=== PATIENT | male | born 1940 | race Caucasian/White ===

== ENCOUNTER 2019-01-18 06:48 | Outpatient (CLI) | payer MEDICARE, BC ==
[2019-01-18 13:45] LABS: #Basophils 0.1 thou/uL (0.0-0.2); #Eosinphils 0.3 thou/uL (0.0-0.7); #Lymphocytes 1.4 thou/uL (1.20-3.40); #Monocytes 0.4 thou/uL (0.11-0.59); #Neutrophils 3.4 thou/uL (1.40-6.50); %Basophils 1.1 % (0.0-1.0); %Eosinophils 5.3 % (0.0-10.0); %Lymphocytes 24.9 % (21.0-51.0); %Monocytes 6.8 % (0.0-10.0); %Neutrophils 61.9 % (42.0-75.0); Hemoglobin 14.5 g/dL (14.0-18.0); Mean Corpuscular HGB CONC 33.7 g/dL (32.0-36.0); Mean Corpuscular Hemoglobin 33.2 pg (27.0-31.0); Mean Corpuscular Volume 98.6 fL (78.0-98.0); Mean Platelet Volume 8.6 fL (7.4-10.4); Platelet Count 142 thou/uL (130-400); RBC Distribution Width 11.8 % (11.5-14.5); Red Blood Cell (RBC) Count 4.37 mill/uL (4.70-6.10); White Blood Cell (WBC) Count 5.5 thou/uL (4.8-10.8)
[2019-01-18 14:12] LABS: Anion Gap 10 mmol/L (10-20); BUN (Urea Nitrogen) 23 mg/dL (8.4-25.7); Calc. Creatinine Clearance 0 mL/min (70-130); Carbon Dioxide 28 mmol/L (23-31); Chloride 108 mmol/L (98-107); Estimated GFR-MDRD 50; Glucose 103 mg/dL (83-110); Potassium 4.5 mmol/L (3.5-5.1); Sodium 141 mmol/L (136-145)
== END 2019-01-18 06:49 | disposition home or self-care (01) ==
LOC: LABBT 06:48
PROVIDERS: ATTEND Orthopaedic Surgery
DX: Z01.818 Encounter for other preprocedural examination (principal); M75.122 Complete rotator cuff tear or rupture of left shoulder, not specified as traumatic
CPT/HCPCS: 80048; 85025; 93005; 93010

== ENCOUNTER 2019-01-21 05:59 | Day surgery (SDC) | payer MEDICARE, BC ==
[2019-01-18 12:36] VITALS: BMI 26.0
[2019-01-21] MEDS ORDERED: Midazolam HCl 2 mg/2 ml Vial ONE (06:40)
[2019-01-21] MEDS ORDERED: Fentanyl 100 MCG/2 ML VIAL ONE (06:40)
[2019-01-21] MEDS ORDERED: Promethazine HCl 25 MG/ML VIAL IM PRN (07:14)
[2019-01-21] MEDS ORDERED: Ondansetron PF 4 MG/2 ML Vial IVP PRN (07:14)
[2019-01-21] MEDS ORDERED: Ropivacaine 0.2% 550 ML 550 ML NERVE BLCK SCH (07:14)
[2019-01-21] MEDS ORDERED: Zolpidem Tartrate 5 MG TAB PO PRN (07:14)
[2019-01-21] MEDS ORDERED: HYDROcodone/Acetaminophen 10/325 mg Tablet PO PRN ×2 (07:14)
[2019-01-21] MEDS ORDERED: traMADol HCl 50 MG TAB PO PRN ×2 (07:14)
[2019-01-21] MEDS ORDERED: Glycopyrrolate 0.2 MG/ML 5 ML SYRINGE ONE (10:18)
[2019-01-21] MEDS ORDERED: Ropivacaine 0.2% HCl/PF (40 MG/20 ML VIAL) ONE (10:18)
[2019-01-21] MEDS ORDERED: Rocuronium Bromide 10 MG/ML (10ML VIAL) ONE (10:18)
[2019-01-21] MEDS ORDERED: Ropivacaine 0.5% HCl/PF (150 MG/30 ML VIAL) ONE (10:18)
[2019-01-21] MEDS ORDERED: PROPOFOL 200 MG/20 ML VIAL ONE (10:18)
[2019-01-21] MEDS ORDERED: Lidocaine 1% PF 5 ML VIAL ONE (10:18)
[2019-01-21] MEDS ORDERED: Ondansetron PF 4 MG/2 ML Vial ONE (10:18)
[2019-01-21] MEDS ORDERED: ePHEDrine/0.9% NaCl/PF SYRINGE 50 mg/10 ml ONE (10:18)
[2019-01-21] MEDS ORDERED: Ketorolac Tromethamine 30 MG/ML VIAL IVP SCH (12:00)
--- NOTE | 2019-01-21 13:43 | OP ---
DATE OF PROCEDURE: 01/21/2019 PREOPERATIVE DIAGNOSIS: Rotator cuff tear, left shoulder. POSTOPERATIVE DIAGNOSIS: Rotator cuff tear, left shoulder. PROCEDURES: Left shoulder arthroscopic subacromial decompression, arthroscopic rotator cuff repair using 2 Arthrex Corkscrew suture anchors. CHEMIST: Subhash. BLOOD LOSS: Minimal. SPECIMEN: None. DRAINS: None. COMPLICATIONS: None. DESCRIPTION OF PROCEDURE: The patient was taken to the operating room, where a general anesthesia was induced. The left arm was prepped and draped in usual sterile fashion. 15 pounds of traction was applied. The scope was placed in the glenohumeral joint, showed a full-thickness rotator cuff tear. The biceps tendon appeared to be in good condition. The scope was placed in subacromial bursa. I performed an extensive bursectomy. CA ligament was taken down. Anterior and inferior acromioplasty was performed. I placed 2 suture anchors to freshen bone of greater tuberosity. Sutures were passed through the rotator cuff and tied with a good watertight repair. Shoulder was then irrigated. Portals were closed with nylon suture. Sterile dressings were applied. Job ID: [id number]
== END 2019-01-21 11:12 | disposition home or self-care (01) ==
LOC: SDC 05:59
PROVIDERS: ATTEND Orthopaedic Surgery
PROC: 0LM24ZZ Reattachment of Left Shoulder Tendon, Percutaneous Endoscopic Approach (ICD-10-PCS; principal; 2019-01-21)
PROC: 0RNK4ZZ Release Left Shoulder Joint, Percutaneous Endoscopic Approach (ICD-10-PCS; 2019-01-21)
PROC: 3E0T3BZ Introduction of Anesthetic Agent into Peripheral Nerves and Plexi, Percutaneous Approach (ICD-10-PCS; 2019-01-21)
DX: M75.122 Complete rotator cuff tear or rupture of left shoulder, not specified as traumatic (principal); I10 Essential (primary) hypertension; E78.5 Hyperlipidemia, unspecified; Z79.899 Other long term (current) drug therapy; Z87.891 Personal history of nicotine dependence; Z95.5 Presence of coronary angioplasty implant and graft; Z96.698 Presence of other orthopedic joint implants
CPT/HCPCS: 29826; 29827; 64416; 97139; 98960; A4306; J0690; J2001; J2250; J2405; J2704; J2795; J3010

== ENCOUNTER 2023-03-11 17:52 | Inpatient (IN) | payer BC, MEDICARE ==
[2023-03-11 19:43] LABS: #Basophils 0.1 thou/uL (0.0-0.2); #Eosinphils 0.2 thou/uL (0.0-0.7); #Monocytes 0.5 thou/uL (0.11-0.59); #Neutrophils 8.8 thou/uL (1.40-6.50); %Basophils 0.7 % (0.0-1.0); %Eosinophils 1.9 % (0.0-10.0); %Lymphocytes 10.1 % (21.0-51.0); %Monocytes 4.5 % (0.0-10.0); %Neutrophils 82.1 % (42.0-75.0); Hematocrit 43.4 % (42.0-52.0); Hemoglobin 14.8 g/dL (14.0-18.0); Mean Corpuscular HGB CONC 34.1 g/dL (32.0-36.0); Mean Corpuscular Hemoglobin 33.6 pg (27.0-31.0); Mean Corpuscular Volume 98.4 fl (78.0-98.0); Mean Platelet Volume 10.7 fL (7.4-10.4); Platelet Count 177 10x3/uL (130-400); RBC Distribution Width 12.6 % (11.5-14.5); Red Blood Cell (RBC) Count 4.41 mill/uL (4.70-6.10); White Blood Cell (WBC) Count 10.8 10x3/uL (4.8-10.8)
[2023-03-11 20:05] LABS: ALT (SGPT) 15 U/L (8-55); AST (SGOT) 35 U/L (5-34); Albumin 4.6 g/dL (3.4-4.8); Alkaline Phosphatase 70 U/L (40-110); Anion Gap 15 mmol/L (10-20); BUN (Urea Nitrogen) 28 mg/dL (8.4-25.7); Calc. Creatinine Clearance 0 mL/min (70-130); Calcium 9.5 mg/dL (7.8-10.44); Carbon Dioxide 26 mmol/L (23-31); Chloride 104 mmol/L (98-107); Estimated GFR 42; Globulin 3.5 g/dL (2.4-3.5); Glucose 164 mg/dL (83-110); Lipase 75 U/L (8-78); Potassium 4.4 mmol/L (3.5-5.1); Protein, Total 8.1 g/dL (5.8-8.1); Sodium 141 mmol/L (136-145)
[2023-03-11 20:12] LABS: Critical Call Chem Troponin I NUR.NKE@2012; Troponin I 3.939 ng/mL (< 0.028)
[2023-03-11] MEDS ORDERED: Nitroglycerin 2% Ointment 1 INCH/1 GM Packet ONE (20:19)
[2023-03-11] MEDS ORDERED: Aspirin Chewable 81 MG TAB ONE (20:19)
[2023-03-11] MEDS ORDERED: Enoxaparin 80 MG (0.8 mL) SYRINGE ONE (20:20)
[2023-03-11 20:57] LABS: Magnesium 2.1 mg/dL (1.6-2.6)
[2023-03-11] MEDS ORDERED: Calcium Carbonate 500 MG ChewTAB PO PRN (21:01)
[2023-03-11] MEDS ORDERED: Acetaminophen 325 MG TAB PO PRN (21:01)
[2023-03-11] MEDS ORDERED: Ondansetron ODT 4 MG TAB PO PRN (21:01)
[2023-03-11] MEDS ORDERED: Nitroglycerin 0.4 MG TAB (25 Tab Bottle) SL PRN (21:05)
[2023-03-11 22:16] LABS: Hematocrit 37.9 % (42.0-52.0); Hemoglobin 13.4 g/dL (14.0-18.0); Platelet Count 159 10x3/uL (130-400)
[2023-03-11 23:04] LABS: Critical Call Chem Troponin I NUR.DB10@2302; Troponin I 6.808 ng/mL (< 0.028)
[2023-03-12 02:39] LABS: Critical Call Chem Troponin I NUR.DB10@0239; Troponin I 11.133 ng/mL (< 0.028)
[2023-03-12] MEDS: Atorvastatin Calcium 10 MG TAB PO SCH ×2 (02:50→03:56)
[2023-03-12] MEDS ORDERED: Atorvastatin Calcium 10 MG TAB ONE (02:52)
[2023-03-12 04:00] LABS: #Basophils 0.1 thou/uL (0.0-0.2); #Eosinphils 0.2 thou/uL (0.0-0.7); #Monocytes 0.6 thou/uL (0.11-0.59); %Basophils 0.6 % (0.0-1.0); %Eosinophils 1.6 % (0.0-10.0); %Lymphocytes 15.6 % (21.0-51.0); %Monocytes 6.5 % (0.0-10.0); %Neutrophils 75.4 % (42.0-75.0); Hematocrit 39.6 % (42.0-52.0); Hemoglobin 13.6 g/dL (14.0-18.0); Mean Corpuscular HGB CONC 34.3 g/dL (32.0-36.0); Mean Corpuscular Hemoglobin 33.6 pg (27.0-31.0); Mean Corpuscular Volume 97.8 fl (78.0-98.0); Mean Platelet Volume 10.5 fL (7.4-10.4); Platelet Count 174 10x3/uL (130-400); RBC Distribution Width 12.6 % (11.5-14.5); Red Blood Cell (RBC) Count 4.05 mill/uL (4.70-6.10); White Blood Cell (WBC) Count 9.3 10x3/uL (4.8-10.8)
[2023-03-12 04:29] LABS: Anion Gap 12 mmol/L (10-20); BUN (Urea Nitrogen) 26 mg/dL (8.4-25.7); Calc. Creatinine Clearance 53 mL/min (70-130); Calcium 9.1 mg/dL (7.8-10.44); Carbon Dioxide 23 mmol/L (23-31); Chloride 109 mmol/L (98-107); Estimated GFR 54; Glucose 125 mg/dL (83-110); Sodium 140 mmol/L (136-145)
[2023-03-12] MEDS ORDERED: Heparin 25,000 units/D5W 500 ML ONE (05:35)
[2023-03-12] MEDS ORDERED: Heparin 5,000 UNITS/ML VIAL ONE (05:35)
[2023-03-12] MEDS: Heparin 10,000 UNITS/ 10 ML VIAL SLOW IVP SCH (07:06)
[2023-03-12] MEDS: Heparin 25,000 units/D5W 500 ML IVPB SCH (07:09)
[2023-03-12] MEDS ORDERED: Famotidine 20 MG TAB ONE (08:07)
[2023-03-12] MEDS ORDERED: Aspirin Chewable 81 MG TAB ONE (08:07)
[2023-03-12] MEDS: Aspirin 81 mg Enteric Coated Tablet PO SCH (08:16)
[2023-03-12] MEDS: Famotidine 20 MG TAB PO SCH (08:16)
[2023-03-12 13:30] LABS: INR-International Normal Ratio 1.1; Prothrombin Time 14.2 sec (12.0-14.7)
[2023-03-12 13:32] LABS: PTT 65.3 sec (22.9-36.1)
[2023-03-12 15:05] VITALS: BMI 26.3
[2023-03-12] MEDS ORDERED: Carvedilol 6.25 MG TAB PO SCH (16:15)
[2023-03-12] MEDS ORDERED: Communication Order-Pharmacy FS SCH (16:30)
[2023-03-12] MEDS ORDERED: Atorvastatin Calcium 40 MG TAB PO SCH (21:00)
[2023-03-12] MEDS: Tamsulosin HCl 0.4 MG CAP PO SCH (22:16)
[2023-03-13 03:23] LABS: #Basophils 0.1 thou/uL (0.0-0.2); #Eosinphils 0.1 thou/uL (0.0-0.7); #Monocytes 0.8 thou/uL (0.11-0.59); #Neutrophils 7.5 thou/uL (1.40-6.50); %Basophils 0.5 % (0.0-1.0); %Eosinophils 1.1 % (0.0-10.0); %Lymphocytes 16.4 % (21.0-51.0); %Monocytes 7.5 % (0.0-10.0); %Neutrophils 74.1 % (42.0-75.0); Hematocrit 41.9 % (42.0-52.0); Hemoglobin 14.5 g/dL (14.0-18.0); Mean Corpuscular HGB CONC 34.6 g/dL (32.0-36.0); Mean Corpuscular Hemoglobin 33.3 pg (27.0-31.0); Mean Corpuscular Volume 96.3 fl (78.0-98.0); Mean Platelet Volume 10.7 fL (7.4-10.4); Platelet Count 171 10x3/uL (130-400); RBC Distribution Width 12.7 % (11.5-14.5); Red Blood Cell (RBC) Count 4.35 mill/uL (4.70-6.10); White Blood Cell (WBC) Count 10.2 10x3/uL (4.8-10.8)
[2023-03-13 04:11] LABS: Anion Gap 14 mmol/L (10-20); BUN (Urea Nitrogen) 21 mg/dL (8.4-25.7); Calc. Creatinine Clearance 53 mL/min (70-130); Calcium 9.2 mg/dL (7.8-10.44); Carbon Dioxide 24 mmol/L (23-31); Cardiac Risk 3.5 (Less than 4.5); Chloride 105 mmol/L (98-107); Cholesterol 137 mg/dl (< 200 Desired); Estimated GFR 51; Glucose 125 mg/dL (83-110); HDL Cholesterol 39 mg/dL (>60 Neg Risk); LDL Cholesterol, Calculated 72 mg/dL; Potassium 3.6 mmol/L (3.5-5.1); Sodium 139 mmol/L (136-145); Triglycerides 130 mg/dL (Less than 150)
[2023-03-13] MEDS ORDERED: Sodium Chloride 0.9% 1,000 ML IV SCH (06:00)
[2023-03-13] MEDS: Famotidine 20 MG TAB PO SCH (06:09)
[2023-03-13] MEDS: Aspirin 81 mg Enteric Coated Tablet PO SCH (06:09)
[2023-03-13] MEDS ORDERED: Midazolam HCl 2 mg/2 ml Vial ONE (06:19)
[2023-03-13] MEDS ORDERED: fentaNYL 50 mcg/mL 1 mL Vial ONE (06:19)
[2023-03-13] MEDS ORDERED: Heparin 10,000 UNITS/ 10 ML VIAL ONE (06:19)
[2023-03-13] MEDS: Heparin 25,000 units/D5W 500 ML IVPB SCH (09:25)
[2023-03-13] MEDS ORDERED: Communication Order-Pharmacy FS SCH (09:30)
[2023-03-13] MEDS: Carvedilol 6.25 MG TAB PO SCH (16:46)
[2023-03-13] MEDS ORDERED: Metoprolol Tartrate 5 MG (5 mL) VIAL IVP SCH (18:15)
[2023-03-13] MEDS ORDERED: dilTIAZem 25 MG/5 ML VIAL SLOW IVP SCH (18:30)
[2023-03-13] MEDS ORDERED: dilTIAZem 125 MG, Admixture Fee 1 EACH in Sodium Chloride 0.9% 100 ML IVPB SCH (18:30)
[2023-03-13 21:03] LABS: Hematocrit 40.6 % (42.0-52.0); Hemoglobin 14.2 g/dL (14.0-18.0); Platelet Count 189 10x3/uL (130-400)
[2023-03-13] MEDS: Atorvastatin Calcium 40 MG TAB PO SCH (22:07)
[2023-03-13] MEDS: Tamsulosin HCl 0.4 MG CAP PO SCH (22:08)
[2023-03-13] MEDS: Heparin 10,000 UNITS/ 10 ML VIAL SLOW IVP SCH (22:56)
[2023-03-14 05:16] LABS: #Basophils 0.1 thou/uL (0.0-0.2); #Eosinphils 0.1 thou/uL (0.0-0.7); #Monocytes 0.8 thou/uL (0.11-0.59); #Neutrophils 8.1 thou/uL (1.40-6.50); %Basophils 0.6 % (0.0-1.0); %Eosinophils 0.6 % (0.0-10.0); %Lymphocytes 15.7 % (21.0-51.0); %Monocytes 7.6 % (0.0-10.0); %Neutrophils 75.1 % (42.0-75.0); Hematocrit 40.5 % (42.0-52.0); Mean Corpuscular HGB CONC 34.6 g/dL (32.0-36.0); Mean Corpuscular Hemoglobin 33.7 pg (27.0-31.0); Mean Corpuscular Volume 97.4 fl (78.0-98.0); Mean Platelet Volume 11.4 fL (7.4-10.4); Platelet Count 176 10x3/uL (130-400); RBC Distribution Width 12.6 % (11.5-14.5); Red Blood Cell (RBC) Count 4.16 mill/uL (4.70-6.10); White Blood Cell (WBC) Count 10.7 10x3/uL (4.8-10.8)
[2023-03-14 05:44] LABS: Anion Gap 15 mmol/L (10-20); BUN (Urea Nitrogen) 21 mg/dL (8.4-25.7); Calc. Creatinine Clearance 53 mL/min (70-130); Calcium 9.3 mg/dL (7.8-10.44); Carbon Dioxide 24 mmol/L (23-31); Chloride 105 mmol/L (98-107); Estimated GFR 50; Glucose 126 mg/dL (83-110); Magnesium 2.2 mg/dL (1.6-2.6); Potassium 3.6 mmol/L (3.5-5.1); Sodium 140 mmol/L (136-145)
[2023-03-14 06:13] LABS: PTT 130.5 sec (22.9-36.1)
[2023-03-14] MEDS: Carvedilol 6.25 MG TAB PO SCH ×2 (06:56→17:06)
[2023-03-14] MEDS: Famotidine 20 MG TAB PO SCH (06:57)
[2023-03-14] MEDS: Aspirin 81 mg Enteric Coated Tablet PO SCH (06:57)
[2023-03-14] MEDS ORDERED: Iopamidol 370 76% 100 ML VIAL ONE (09:10)
[2023-03-14] MEDS ORDERED: Heparin 10,000 UNITS/ 10 ML VIAL ONE (11:05)
[2023-03-14] MEDS ORDERED: Midazolam HCl 2 mg/2 ml Vial ONE ×2 (11:05→13:33)
[2023-03-14] MEDS ORDERED: fentaNYL 50 mcg/mL 1 mL Vial ONE ×2 (11:05→13:33)
[2023-03-14] MEDS ORDERED: Nitroglycerin 50 MG/250 ML BOT 0 ML ONE (11:05)
[2023-03-14] MEDS ORDERED: Protamine Sulfate 50 MG/5 ML VIAL ONE (14:38)
[2023-03-14] MEDS ORDERED: Nitroglycerin 0.4 MG TAB (25 Tab Bottle) SL PRN (15:03)
[2023-03-14] MEDS ORDERED: Acetaminophen/Codeine 30-300mg Tablet PO PRN ×2 (15:03)
[2023-03-14] MEDS ORDERED: Sodium Chloride 0.9% 200 ML IV PRN (15:03)
[2023-03-14] MEDS ORDERED: Sodium Chloride 0.9% 1,000 ML IV SCH (15:15)
[2023-03-14] MEDS: Potassium Bicarbonate/Cit Ac 20 MEQ TAB PO SCH ×3 (15:40→20:31)
[2023-03-14] MEDS ORDERED: Clopidogrel Bisulfate 300 MG TAB PO SCH (16:15)
[2023-03-14] MEDS: Tamsulosin HCl 0.4 MG CAP PO SCH (20:31)
[2023-03-14] MEDS: Atorvastatin Calcium 40 MG TAB PO SCH (20:31)
[2023-03-15 04:57] LABS: #Basophils 0.1 thou/uL (0.0-0.2); #Eosinphils 0.1 thou/uL (0.0-0.7); #Monocytes 0.8 thou/uL (0.11-0.59); #Neutrophils 6.4 thou/uL (1.40-6.50); %Basophils 0.6 % (0.0-1.0); %Eosinophils 1.1 % (0.0-10.0); %Lymphocytes 14.1 % (21.0-51.0); %Monocytes 9.1 % (0.0-10.0); %Neutrophils 74.7 % (42.0-75.0); Hematocrit 38.4 % (42.0-52.0); Hemoglobin 12.9 g/dL (14.0-18.0); Mean Corpuscular HGB CONC 33.6 g/dL (32.0-36.0); Mean Corpuscular Hemoglobin 33.5 pg (27.0-31.0); Mean Corpuscular Volume 99.7 fl (78.0-98.0); Mean Platelet Volume 10.9 fL (7.4-10.4); Platelet Count 143 10x3/uL (130-400); RBC Distribution Width 12.8 % (11.5-14.5); Red Blood Cell (RBC) Count 3.85 mill/uL (4.70-6.10); White Blood Cell (WBC) Count 8.6 10x3/uL (4.8-10.8)
[2023-03-15 06:20] LABS: Anion Gap 19 mmol/L (10-20); BUN (Urea Nitrogen) 24 mg/dL (8.4-25.7); Calc. Creatinine Clearance 55 mL/min (70-130); Calcium 8.5 mg/dL (7.8-10.44); Carbon Dioxide 18 mmol/L (23-31); Chloride 107 mmol/L (98-107); Estimated GFR 52; Glucose 103 mg/dL (83-110); Potassium 4.1 mmol/L (3.5-5.1); Sodium 140 mmol/L (136-145)
[2023-03-15] MEDS: Carvedilol 6.25 MG TAB PO SCH ×2 (09:06→16:12)
[2023-03-15] MEDS: Aspirin 81 mg Enteric Coated Tablet PO SCH (09:06)
[2023-03-15] MEDS: Furosemide 20 MG TAB PO SCH (09:07)
[2023-03-15] MEDS: Clopidogrel Bisulfate 75 MG TAB PO SCH (09:07)
[2023-03-15] MEDS: Famotidine 20 MG TAB PO SCH (09:07)
[2023-03-15] MEDS: Heparin 5,000 UNITS/ML VIAL SC SCH ×2 (09:10→21:59)
[2023-03-15] MEDS ORDERED: Sacubitril 24MG/Valsartan 26 MG TAB PO SCH (09:15)
[2023-03-15] MEDS: Sacubitril 24MG/Valsartan 26 MG TAB PO SCH (21:59)
[2023-03-15] MEDS: Atorvastatin Calcium 40 MG TAB PO SCH (21:59)
[2023-03-15] MEDS: Tamsulosin HCl 0.4 MG CAP PO SCH (21:59)
[2023-03-16] MEDS: Heparin 5,000 UNITS/ML VIAL SC SCH ×2 (08:22→22:00)
[2023-03-16] MEDS: Famotidine 20 MG TAB PO SCH (08:22)
[2023-03-16] MEDS: Aspirin 81 mg Enteric Coated Tablet PO SCH (08:22)
[2023-03-16] MEDS: Furosemide 20 MG TAB PO SCH (08:22)
[2023-03-16] MEDS: Sacubitril 24MG/Valsartan 26 MG TAB PO SCH ×2 (08:23→22:00)
[2023-03-16] MEDS: Clopidogrel Bisulfate 75 MG TAB PO SCH (08:23)
[2023-03-16] MEDS: Carvedilol 6.25 MG TAB PO SCH (08:23)
[2023-03-16] MEDS: Carvedilol 25 MG TAB PO SCH (16:32)
[2023-03-16] MEDS: Tamsulosin HCl 0.4 MG CAP PO SCH (22:00)
[2023-03-16] MEDS: Atorvastatin Calcium 40 MG TAB PO SCH (22:00)
[2023-03-17 05:16] LABS: #Basophils 0.1 thou/uL (0.0-0.2); #Eosinphils 0.2 thou/uL (0.0-0.7); #Monocytes 0.8 thou/uL (0.11-0.59); #Neutrophils 5.4 thou/uL (1.40-6.50); %Basophils 0.8 % (0.0-1.0); %Eosinophils 2.5 % (0.0-10.0); %Lymphocytes 19.8 % (21.0-51.0); %Monocytes 9.4 % (0.0-10.0); %Neutrophils 67.2 % (42.0-75.0); Hematocrit 36.9 % (42.0-52.0); Hemoglobin 12.6 g/dL (14.0-18.0); Mean Corpuscular HGB CONC 34.1 g/dL (32.0-36.0); Mean Corpuscular Hemoglobin 33.6 pg (27.0-31.0); Mean Corpuscular Volume 98.4 fl (78.0-98.0); Mean Platelet Volume 11.2 fL (7.4-10.4); Platelet Count 161 10x3/uL (130-400); RBC Distribution Width 12.7 % (11.5-14.5); Red Blood Cell (RBC) Count 3.75 mill/uL (4.70-6.10)
[2023-03-17 06:34] LABS: Anion Gap 14 mmol/L (10-20); BUN (Urea Nitrogen) 25 mg/dL (8.4-25.7); Calc. Creatinine Clearance 49 mL/min (70-130); Calcium 8.8 mg/dL (7.8-10.44); Carbon Dioxide 24 mmol/L (23-31); Chloride 104 mmol/L (98-107); Estimated GFR 46; Glucose 112 mg/dL (83-110); Potassium 3.5 mmol/L (3.5-5.1); Sodium 138 mmol/L (136-145)
[2023-03-17] MEDS: Carvedilol 25 MG TAB PO SCH ×2 (09:43→16:00)
[2023-03-17] MEDS: Aspirin 81 mg Enteric Coated Tablet PO SCH (09:43)
[2023-03-17] MEDS: Famotidine 20 MG TAB PO SCH (09:43)
[2023-03-17] MEDS: Heparin 5,000 UNITS/ML VIAL SC SCH ×2 (09:43→20:04)
[2023-03-17] MEDS: Sacubitril 24MG/Valsartan 26 MG TAB PO SCH ×2 (09:43→20:04)
[2023-03-17] MEDS: Clopidogrel Bisulfate 75 MG TAB PO SCH (09:43)
[2023-03-17] MEDS: Furosemide 20 MG TAB PO SCH (09:43)
[2023-03-17] MEDS: Tamsulosin HCl 0.4 MG CAP PO SCH (20:04)
[2023-03-17] MEDS: Atorvastatin Calcium 40 MG TAB PO SCH (20:04)
[2023-03-18 04:39] LABS: #Basophils 0.1 thou/uL (0.0-0.2); #Eosinphils 0.3 thou/uL (0.0-0.7); #Monocytes 0.7 thou/uL (0.11-0.59); %Basophils 0.9 % (0.0-1.0); %Lymphocytes 25.2 % (21.0-51.0); %Monocytes 8.3 % (0.0-10.0); %Neutrophils 61.1 % (42.0-75.0); Hemoglobin 13.5 g/dL (14.0-18.0); Mean Corpuscular HGB CONC 33.8 g/dL (32.0-36.0); Mean Corpuscular Hemoglobin 33.1 pg (27.0-31.0); Mean Platelet Volume 11.5 fL (7.4-10.4); Platelet Count 169 10x3/uL (130-400); Red Blood Cell (RBC) Count 4.08 mill/uL (4.70-6.10); White Blood Cell (WBC) Count 8.2 10x3/uL (4.8-10.8)
[2023-03-18 05:07] LABS: Anion Gap 12 mmol/L (10-20); BUN (Urea Nitrogen) 32 mg/dL (8.4-25.7); Calc. Creatinine Clearance 50 mL/min (70-130); Calcium 8.7 mg/dL (7.8-10.44); Carbon Dioxide 26 mmol/L (23-31); Chloride 107 mmol/L (98-107); Estimated GFR 48; Glucose 111 mg/dL (83-110); Potassium 3.5 mmol/L (3.5-5.1); Sodium 141 mmol/L (136-145)
[2023-03-18] MEDS: Furosemide 20 MG TAB PO SCH (08:31)
[2023-03-18] MEDS: Carvedilol 25 MG TAB PO SCH (08:31)
[2023-03-18] MEDS: Clopidogrel Bisulfate 75 MG TAB PO SCH (08:31)
[2023-03-18] MEDS: Aspirin 81 mg Enteric Coated Tablet PO SCH (08:31)
[2023-03-18] MEDS: Heparin 5,000 UNITS/ML VIAL SC SCH (08:31)
[2023-03-18] MEDS: Sacubitril 24MG/Valsartan 26 MG TAB PO SCH (08:31)
[2023-03-18] MEDS: Famotidine 20 MG TAB PO SCH (08:31)
[2023-03-18 12:12] VITALS: TEMP 97.1
[2023-03-18 12:22] VITALS: BP 101/52
== END 2023-03-18 15:13 | disposition home health service (06) | DRG 281 ==
LOC: ERS 17:52 → ERHOLD 20:49 → 2NO 03-12 14:22
PROVIDERS: ADMIT Student in an Organized Health Care Education/Training Program; ATTEND Family Medicine
PROC: 4A023N7 Measurement of Cardiac Sampling and Pressure, Left Heart, Percutaneous Approach (ICD-10-PCS; principal; 2023-03-11)
PROC: B2151ZZ Fluoroscopy of Left Heart using Low Osmolar Contrast (ICD-10-PCS; 2023-03-11)
PROC: B2111ZZ Fluoroscopy of Multiple Coronary Arteries using Low Osmolar Contrast (ICD-10-PCS; 2023-03-11)
DX: I21.4 Non-ST elevation (NSTEMI) myocardial infarction (principal); N17.9 Acute kidney failure, unspecified; I25.10 Atherosclerotic heart disease of native coronary artery without angina pectoris; N40.0 Benign prostatic hyperplasia without lower urinary tract symptoms; R41.0 Disorientation, unspecified; I12.9 Hypertensive chronic kidney disease with stage 1 through stage 4 chronic kidney disease, or unspecified chronic kidney disease; N18.30 Chronic kidney disease, stage 3 unspecified; E78.00 Pure hypercholesterolemia, unspecified; Z79.2 Long term (current) use of antibiotics; Z79.82 Long term (current) use of aspirin; Z79.899 Other long term (current) drug therapy; Z87.891 Personal history of nicotine dependence; Z89.511 Acquired absence of right leg below knee; Z98.890 Other specified postprocedural states
CPT/HCPCS: 36415; 71046; 80048; 80053; 80061; 83690; 83735; 84484; 85014; 85018; 85025; 85049; 85347; 85610; 85730; 93005; 93010; 93306; 93458; 93798; 99152; C1769; J1644; J1650; J2250; J2720; J3010; J7050; Q9967